=== PATIENT | male | born 1955 | race Caucasian/White ===

== ENCOUNTER 2016-12-04 21:34 | Observation (INO) ==
[2016-12-04] MEDS ORDERED: Ondansetron 4 MG/2 ML VIAL IVP ONE (22:48)
[2016-12-04 22:52] LABS: Basophils # 0.1 K/mcL (0.0-0.2); Basophils % 0.5 %; Eosinophils # 0.2 K/mcL (0.0-0.6); Eosinophils % 1.4 %; Hemoglobin 15.4 g/dL (12.9-16.9); Immature Granulocytes % 0.3 % (0-4); Lymphocytes # 0.9 K/mcL (0.6-4.6); Lymphocytes % 7.3 %; Mean Corpuscular HGB Conc 34.2 g/dL (31.6-35.5); Mean Corpuscular Hemoglobin 29.6 pg (28.0-33.3); Mean Corpuscular Volume 86.5 fL (83.0-100.0); Mean Platelet Volume 11.2 fL (9.4-12.4); Monocytes # 0.5 K/mcL (0.0-1.3); Monocytes % 4.1 %; Neutrophils # 10.8 K/mcL (1.6-8.9); Platelet Count 197 K/mcL (140-400); Red Cell Distribution Width 12.7 % (11.5-14.5); Segmented Neutrophils % 86.4 %
--- NOTE | 2016-12-04 22:55 | Emergency Department Note ---
Disposition Clinical Impression: Food impaction of esophagus Qualifiers: Encounter type: initial encounter Qualified Code(s): T18.128A - Food in esophagus causing other injury, initial encounter Disposition: Admitted As Inpatient Condition: Good Referrals: Damon Dan MD [Primary Care Provider] - Satya Saucedo MD [Family Provider] - Forms: ED Satisfaction Letter, Work/School Release General Adult HPI - General Chief complaint: ED General Medical Stated complaint: FB THROAT Time Seen by Provider: 12/04/16 22:36 Source: patient Mode of arrival: private vehicle Limitations: no limitations Nursing Notes Reviewed: Yes Vital Signs Reviewed: Yes - History of Present Illness HPI Narrative: 61-year-old male history of hyperlipidemia who presents to the ER due to food in his throat. States he ate roast around 7 PM. States that he has had food stuck in his throat before but it usually clears with effort. Denies prior history of requiring endoscopy. Has had one endoscopy many years ago. He did try to drink some Coke and water at home but states he threw that up. No medical problems other than hyperlipidemia. He does not take any antiplatelet or anticoagulation medications. No other complaints. Pt Subjective Complaint: Food bolus in throat Onset (ago): hour(s) Radiation: non-radiation Pain Scale: 0 Consistency: constant Improves with: nothing Worsens with: nothing Associated symptoms: Reports: denies other symptoms Treatments Prior to Arrival: none - Related Data Allergies Allergy/AdvReac Type Severity Reaction Status Date / Time aspirin AdvReac Gastrointestinal Verified 12/04/16 23:07 Upset All systems ED: reviewed and negative except as stated. ENT ED: Reports: throat pain Cardiovascular: Denies: chest pain Respiratory: Denies: dyspnea Gastrointestinal: Denies: abdominal pain, nausea, vomiting, diarrhea Past Medical History - Past Medical History Attestation: Yes The following information was validated with the patient. Source: patient Medical history: Reports: GERD, hyperlipidemia, hypertension, other Surgical history: Reports: non-contributory Psychiatric history: Reports: no psych history - Social History Smoking Status: Never smoker Smokeless Tobacco Status: No Alcohol use: Reports: none, rarely Drug use: Reports: none Physical Exam - General Limitations: no limitations General appearance: alert, in no apparent distress - Head Head exam: atraumatic, normocephalic, normal inspection - Eye Eye exam: Present: normal appearance, EOMI - ENT ENT exam: normal exam, normal oropharynx - Neck Neck exam: Present: normal inspection, full ROM - Chest Chest inspection: Present: normal inspection, symmetric chest wall rise - Respiratory Respiratory exam: Present: normal lung sounds bilaterally - Cardiovascular Cardiovascular exam: Present: regular rate, normal rhythm, normal heart sounds - Abdominal Exam Abdominal exam: Present: soft, Non-Tender. Absent: tenderness, distention, rigidity - Extremities Exam Extremities exam: Present: normal inspection, full ROM - Expanded Upper Extremity Exam Shoulder exam: Present: normal inspection, full ROM Arm exam: Present: normal inspection, full ROM Elbow exam: Present: normal inspection, full ROM Forearm/Wrist exam: Present: normal inspection, full ROM Hand exam: Present: normal inspection, full ROM - Expanded Lower Extremity Exam Hip/Pelvis exam: Present: normal inspection, full ROM Upper leg exam: Present: normal inspection, full ROM Knee exam: Present: normal inspection, full ROM Lower leg exam: Present: normal inspection, full ROM Ankle exam: Present: normal inspection, full ROM Foot/toe exam: Present: normal inspection, full ROM Neurovascular/Tendon exam: Absent: motor deficit, sensory deficit - Neurological Exam Neurological exam: Present: alert, other (GCS 15. Nonfocal neurologic exam.) - Psychiatric Psychiatric exam: Present: normal affect, normal mood - Skin Skin exam: Present: warm, dry, intact, normal color Course Course Narrative: Patient seen and examined. We will get basic labs as well as try glucagon here. - Reevaluation(s) Reevaluation #1: Patient given glucagon 2 and tried to sip water here but was unable to keep it down. We will page the endoscopist. Time: 00:13 - Consultations Consultation #1: I spoke with the on-call endoscopist Dr. Culver. Discussed the patient's history labs and interventions today. She will not be in to see the patient tonight and accepts the patient to her service for evaluation in the morning. Vital Signs Temperature 98.1 F 12/04/16 21:42 Pulse Rate 63 12/04/16 21:42 Respiratory Rate 16 12/04/16 21:42 Blood Pressure 170/98 12/04/16 21:42 O2 Sat by Pulse Oximetry 96 12/04/16 21:42 Temperature 98.1 F 12/04/16 21:42 Pulse Rate 63 12/04/16 21:42 Respiratory Rate 16 12/04/16 21:42 Blood Pressure 170/98 12/04/16 21:42 O2 Sat by Pulse Oximetry 96 12/04/16 21:42 Oxygen Delivery Oxygen Delivery Room Air Medical Decision Making - MDM Narrative Medical decision making narrative: 61-year-old male presents to the ER due to food bolus. States food gets stuck in his throat around 7 PM. Patient given glucagon 2 here without improvement. Unable to keep down water afterwards. Case discussed with endoscopist who accepts the patient to their service. - Lab Data Lab results reviewed: Yes I reviewed the patient's lab results. Result diagrams: 12/04/16 22:46 12/04/16 22:46 Lab Results 12/04/16 12/04/16 12/04/16 Range/Units 22:46 22:46 22:46 WBC 12.5 H (4.3-11.1) K/mcL RBC 5.20 (4.19-5.50) M/mcL Hgb 15.4 (12.9-16.9) g/dL Hct 45.0 (37.5-50.1) % MCV 86.5 (83.0-100.0) fL MCH 29.6 (28.0-33.3) pg MCHC 34.2 (31.6-35.5) g/dL RDW 12.7 (11.5-14.5) % Plt Count 197 (140-400) K/mcL MPV 11.2 (9.4-12.4) fL Immature Gran % 0.3 (0-4) % Seg Neutrophils % 86.4 % Lymphocytes % 7.3 % Monocytes % 4.1 % Eosinophils % 1.4 % Basophils % 0.5 % Neutrophils # 10.8 H (1.6-8.9) K/mcL Lymphocytes # 0.9 (0.6-4.6) K/mcL Monocytes # 0.5 (0.0-1.3) K/mcL Eosinophils # 0.2 (0.0-0.6) K/mcL Basophils # 0.1 (0.0-0.2) K/mcL PT 12.1 (9.4-12.1) Seconds INR 1.1 Sodium 140 (136-145) mEq/L Potassium 4.0 (3.5-4.5) mEq/L Chloride 106 (98-109) mEq/L Carbon Dioxide 26 (19-29) mEq/L BUN 18 (8-26) mg/dL Creatinine 1.04 (0.72-1.25) mg/dL Est GFR ( Amer) > 60 (> 60) Est GFR (Non-Af Amer) > 60 (> 60) BUN/Creatinine Ratio 17 (6-26) Glucose 122 H (70-99) mg/dL Calculated Osmolality 293 (280-300) Calcium 9.1 (8.6-10.8) mg/dL Attestation Statement - Attestation Attestation: I, Antione Anders MD, personally evaluated this patient and discussed their management with the resident physician. I reviewed the resident's note and agree with the documented findings, medical decision making, and plan of care. 61-year-old male presents to the emergency department with a complaint of an esophageal food bolus obstructing his esophagus after eating roast beef about 7 PM this evening. He states he has had similar episodes in the past but it would always passed spontaneously tonight symptoms have not resolved and he is unable to swallow fluids or his saliva. The pockets feels like it is in the upper esophagus just below the sternal notch. No chest pain or difficulty breathing. No abdominal pain. On examination patient is a well-developed well-nourished well-appearing male in no acute distress. He is alert and oriented 3. There is no cyanosis or diaphoresis. Chest is nontender to palpation. Breath sounds clear and equal bilaterally. Heart regular rate and rhythm. Abdomen soft and nontender with normal bowel sounds. No relief of symptoms with 2 doses of IV glucagon. The endoscopist instructional coach, Dr. Culver, was consulted and will admit the patient to her service.
[2016-12-04 22:57] LABS: INR 1.1; Prothrombin Time 12.1 Seconds (9.4-12.1)
[2016-12-04 23:09] LABS: BUN/Creatinine Ratio 17 (6-26); Blood Urea Nitrogen 18 mg/dL (8-26); Calcium 9.1 mg/dL (8.6-10.8); Carbon Dioxide 26 mEq/L (19-29); Chloride 106 mEq/L (98-109); Glucose 122 mg/dL (70-99); Osmolality,Calculated 293 (280-300); Sodium 140 mEq/L (136-145); eGFR For African Americans > 60 (> 60); eGFR For Non-African Americans > 60 (> 60)
[2016-12-05] MEDS ORDERED: *HR* Promethazine 25 MG/ML VIAL ONE (05:45)
[2016-12-05] MEDS ORDERED: *HR* Midazolam HCl 5 MG/5 ML VIAL IVP ONE (05:45)
[2016-12-05] MEDS ORDERED: *HR* FentaNYL (PF) 100 MCG/2 ML VIAL ONE (05:45)
[2016-12-05] MEDS ORDERED: Tetracaine/Benzocaine/Butamben 200MG/SPRAY (100SPY/BOT) ONE (05:50)
[2016-12-05] MEDS ORDERED: Tetracaine/Benzocaine/Butamben 200MG/SPRAY (100SPY/BOT) MM ONE (05:54)
[2016-12-05] MEDS ORDERED: *HR* Promethazine 25 MG/ML VIAL IVP ONE (05:54)
[2016-12-05] MEDS ORDERED: Simethicone 40 MG/0.6 ML MLS IR ONE (05:54)
--- NOTE | 2016-12-05 05:58 | General Surg History&Physical ---
Date of Encounter: 12/05/16 Time of Encounter: 05:50 Assessment and Plan (1) Food impaction of esophagus Current Visit: Yes Status: Acute The assessment and plan as outlined above was discussed with the patient and/or family members who expressed understanding and agreement. All questions were answered. discussed EGD with patient including removal of esophageal foreign body, risks discussed were bleeding, reaction to anesthesia, perforation or tear of esophagus or stomach, need for further surgery/intervention, dilation of esophagus npo, ivfh Qualifiers: Encounter type: initial encounter Qualified Code(s): T18.128A - Food in esophagus causing other injury, initial encounter History of Present Illness Chief complaint: food stuck in throat HPI: Mr. Montgomery is a 61 year old male who comes in with complaints of took one bite of roast beef last night and it got stuck in his upper throat. He has had issues in the past with breads and rice getting stuck for which he will take a drink of water and wash it down. He tried to drink coke last night to see if it helped dislodge the meat but it did not work. The er reports they gave him glucagon twice without results. He denies history of heartburn or reflux. He has had an egd in the past for UGIB, gastric ulcer. He has had a little nausea without emesis. Past Med Surg Social Fam HX - Past Medical History Source: patient Medical history: hyperlipidemia, other (hx gastric bleeding ulcer) Psychiatric history: no psych history - Past Surgical History Surgical History: orthopedic, other (Rt knee meniscus repair), other (EGD) - Social History Smoking Status: Never smoker Smokeless Tobacco Status: No Alcohol use: none Drug use: none - Family History Father Hx Family Cardiac Disorders: Yes (MYOCARDIAL INFARCTION.) Medications and Allergies Simvastatin [Zocor] 40 mg PO HS 12/05/16 [History] 3 Allergy/AdvReac Type Severity Reaction Status Date / Time aspirin AdvReac Gastrointestinal Verified 12/04/16 23:07 Upset ibuprofen AdvReac Gastrointestinal Verified 12/05/16 01:58 Upset Review of Systems All systems PM: reviewed and no additional remarkable complaints except as stated All systems PM: A 10-system review of systems was performed and is negative for pertinent findings except as documented above in the HPI. General Surgery Exam Initial Vital Signs Temp Pulse Resp BP Pulse Ox 98.1 F 63 16 170/98 96 12/04/16 21:42 12/04/16 21:42 12/04/16 21:42 12/04/16 21:42 12/04/16 21:42 - General physical appearance well developed, well nourished, no distress, no pain - Eyes PERRL, normal ocular movement - ENT normal mucosa, normocephalic - Respiratory normal expansion, clear to auscultation - Cardiovascular Cardiovascular exam: Present: RRR, no murmurs/rubs/gallops - Abdomen Abdomen general surgery: Present: bowel sounds present, soft, non tender. Absent: distended - Integumentary Integumentary general surgery: Present: warm and dry, no abnormal pigmentation - Neurologic Present: CN 2-12 grossly intact - Musculoskeletal Present: normal gait, normal posture - Psychiatric Psychiatric general surgery: Present: A&Ox3, speech is normal Results - Labs 12/04/16 22:46 12/04/16 22:46 Abnormal lab results WBC 12.5 K/mcL (4.3-11.1) H 12/04/16 22:46 Neutrophils # 10.8 K/mcL (1.6-8.9) H 12/04/16 22:46 Glucose 122 mg/dL (70-99) H 12/04/16 22:46 All other labs normal.
[2016-12-05] MEDS ORDERED: 0.9 % Sodium Chloride 1,000 ML IVC SCH (06:00)
--- NOTE | 2016-12-05 06:01 | Pre-Sedation Evaluation ---
Pre-sedation evaluation - Pre-sedation checklist Date of procedure: 12/05/16 Procedure: EGD. Recent Vitals: Last Vital Signs Temp 98.2 F 12/05/16 01:25 Pulse 63 12/05/16 01:25 Resp 15 12/05/16 01:25 BP 156/82 12/05/16 01:25 Pulse Ox 99 12/05/16 01:25 H&P (including ROS) documented in medical record: Yes Previous reaction to sedatives/anesthetics: No Dietary Status: NPO after Midnight Dentition: full dentition ASA Classification *see protocol: CLASS II-Mild systemic disease Plan of Care: Pt appropriate candidate for procedure/moderate/conscious sedation , Risks/benefits of procedure/sedation discussed w/ patient/family
[2016-12-05] MEDS ORDERED: 0.9 % Sodium Chloride 500 ML IVC SCH (06:15)
[2016-12-05] MEDS: *HR* Midazolam HCl 5 MG/5 ML VIAL IVP PRN ×3 (06:19→06:44)
[2016-12-05] MEDS: *HR* FentaNYL (PF) 100 MCG/2 ML VIAL IVP PRN ×3 (06:21→06:30)
[2016-12-05] MEDS ORDERED: Pantoprazole 80 MG in 0.9 % Sodium Chloride 50 ML IVPB ONE (07:14)
--- NOTE | 2016-12-05 07:18 | Discharge Summary ---
Date of Encounter: 12/05/16 Time of Encounter: 07:15 - Discharge Diagnosis (1) Food impaction of esophagus Priority: Primary Status: Acute Qualifiers: Encounter type: initial encounter Qualified Code(s): T18.128A - Food in esophagus causing other injury, initial encounter (2) Duodenal ulcer Priority: Secondary Status: Acute (3) Duodenitis Priority: Secondary Status: Acute (4) Multiple gastric polyps Priority: Secondary Status: Acute (5) Benign esophageal stricture Priority: Secondary Status: Acute (6) Nodule of esophagus Priority: Secondary Status: Acute (7) Esophagitis Priority: Secondary Status: Acute (8) Esophageal diverticulum Priority: Secondary Status: Acute - Discharge Medications Prescriptions: Omeprazole [PriLOSEC] 40 mg PO DAILY #30 cap Sucralfate [Carafate] 1 gm PO QIDAC #120 tablet Home Medications: Omeprazole [PriLOSEC] 40 mg PO DAILY #30 cap 12/05/16 [Rx] Simvastatin [Zocor] 40 mg PO HS 12/05/16 [History] Sucralfate [Carafate] 1 gm PO QIDAC #120 tablet 12/05/16 [Rx] Allergies/Adverse Reactions: 3 Allergy/AdvReac Type Severity Reaction Status Date / Time aspirin AdvReac Gastrointestinal Verified 12/04/16 23:07 Upset ibuprofen AdvReac Gastrointestinal Verified 12/05/16 01:58 Upset General Surgery Exam Initial Vital Signs Temp Pulse Resp BP Pulse Ox 98.1 F 63 16 170/98 96 12/04/16 21:42 12/04/16 21:42 12/04/16 21:42 12/04/16 21:42 12/04/16 21:42 - General physical appearance well nourished, no distress - Eyes PERRL, normal ocular movement - ENT normal mucosa, normocephalic - Neck trachea midline - Respiratory normal expansion - Cardiovascular Cardiovascular exam: Present: RRR - Abdomen Abdomen general surgery: Present: soft, non tender - Integumentary Integumentary general surgery: Present: warm and dry, no abnormal pigmentation - Neurologic Present: CN 2-12 grossly intact - Musculoskeletal Present: normal posture Date of admission: 12/05/16 00:53 Primary care physician: Damon Dan MD Discharging clinician: Mandy Culver Anticipated date of discharge: 12/05/16 - Patient Status Disposition: Home, Self-Care Condition: Good Overall status at discharge: patient is progressing back to baseline - Discharge Instructions Instructions: Peptic Ulcer (DC), Diet for Ulcers and Gastritis (GEN) Follow Up With: Damon Dan MD [Primary Care Provider] - Satya Saucedo MD [Family Provider] - Mandy Culver MD [Partnered Physician] - (3 weeks) - Diet and Activity Activity: increase activity as tolerated, other (ok to return to work Friday) Diet: other (soft diet for 1 week, ensure cut meats into very small pieces and chew well) - Hospital Course Hospital course: Mr. Montgomery is a 61 year old male who presented with esophageal foreign body. He underwent an uncomplicated EGD with removal impacted food. Findings at EGD: duodenitis, abnormal duodenal mucosa, duodenal ulcer, gastric polyps, two benign appearing esophageal strictures - easily traversed, esophageal diverticulum just above GEJ, duodenal nodules, ringed esophagus. Multiple biopsies were taken. Patient tolerated procedure well. - Time Spent with Patient Total time spent providing and/or coordinating discharge services:
[2016-12-05 07:57] VITALS: BP 127/78
[2016-12-05] MEDS: Sucralfate 1 GM TABLET PO SCH ×2 (08:58→08:59)
== END 2016-12-05 10:53 | disposition home or self-care (01) ==
LOC: 3BNU 21:34 → EMEROO 21:34 → 3BNU 12-05 01:19
PROVIDERS: ADMIT Surgery; ATTEND Surgery
PROC: ENDOEFB (2016-12-05 06:00)